=== PATIENT | male | born 1985 | race Hispanic/Latino ===

== ENCOUNTER 2021-12-22 09:52 | Emergency (ER) | payer SELFPAY ==
[2021-12-22] MEDS ORDERED: Ibuprofen 800 MG TAB ONE (10:28)
== END 2021-12-22 10:45 | disposition home or self-care (01) ==
LOC: BURERS 09:52
DX: M54.2 Cervicalgia (principal); F17.210 Nicotine dependence, cigarettes, uncomplicated
CPT/HCPCS: 72040; 99283

== ENCOUNTER 2024-09-29 20:16 | Emergency (ER) | payer SELFPAY ==
[2024-09-29] MEDS ORDERED: predniSONE 20 MG TAB ONE (20:52)
[2024-09-29] MEDS ORDERED: Ketorolac Tromethamine 30 MG (1 mL) VIAL ONE (20:52)
== END 2024-09-29 21:19 | disposition home or self-care (01) ==
LOC: BURERS 20:16
DX: J11.1 Influenza due to unidentified influenza virus with other respiratory manifestations (principal); R11.0 Nausea; F17.210 Nicotine dependence, cigarettes, uncomplicated
CPT/HCPCS: 96372; 99283; J1885; J7512